=== PATIENT | male | born 2000 | race Two or more races ===

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

== ENCOUNTER 2021-01-29 21:09 | Emergency (ER) | payer MEDICAID ==
[~2021-01-29] VITALS: Ht 180.3 cm; Wt 81.6 kg
[2021-01-29 21:24] VITALS: BP 125/71
--- NOTE | 2021-01-29 22:25 | NUR ---
Patient discharged to home in stable condition. Written and verbal after care instructions given. Patient verbalizes understanding of instruction.
== END 2021-01-29 22:26 | disposition home or self-care (01) ==
LOC: ER 21:09
DX: S00.33XA Contusion of nose, initial encounter (principal); W50.0XXA Accidental hit or strike by another person, initial encounter; Y93.67 Activity, basketball; Y92.310 Basketball court as the place of occurrence of the external cause; Y99.8 Other external cause status
CPT/HCPCS: 70150-TC